=== PATIENT | female | born 2005 | race Caucasian/White ===

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

== ENCOUNTER 2024-05-30 16:36 | Outpatient (CLI) | payer SELFPAY ==
[~2024-05-30] VITALS: Ht 157.5 cm; Wt 56.8 kg
[~2024-05-30 16:36] MED LIST changes: +CHANTIX 1MG1 MG PO; +INDERAL 10MG10 MG PO; +PROTONIX 40MG T40 MG PO
[2024-05-30 17:00] VITALS: BP 103/52; PULSE 81; TEMP 98.2
[2024-05-30 17:30] VITALS: BP 107/58; PULSE 80
[2024-05-30] MEDS ORDERED: LR 1,000 ML IV PRN (17:30)
--- NOTE | 2024-05-30 17:51 | NUR ---
VARIABLES NOTED AT THIS TIME ON HEART RATE DURING PT POSITION CHANGE FROM SEMIFOWLERS TO ON HER LEFT LATERAL SIDE. PT NOT REPORTING ANY PAIN, DENIES FEELING CONTRACTIONS, NO LEAKING OF FLUID, NO VAGINAL BLEEDING. PT VS STABLE
[2024-05-30 18:00] VITALS: BP 105/56; PULSE 69
[2024-05-30 18:30] VITALS: BP 107/62; PULSE 81
[2024-05-30 18:41] LABS: TRICYCLIC ANTIDEPRESS URINE NEGATIVE (NEGATIVE)
[2024-05-30 19:00] VITALS: BP 98/54; PULSE 86
--- NOTE | 2024-05-30 19:10 | NUR ---
PT STATES NOT NOTICING CONTRACTIONS OTHER THAN AN OCCASIONAL TIGHTENING. REVIEWED PT SUMMARY WITH HER. DISCUSSED KICK COUNTS AND EARLY LABOR SIGNS AND WHEN TO COME TO HOSPITAL. INSTRUCTED PT TO FOLLOW UP WITH HER MD SCHEDULED AND TO CALL WITH QUESTIONS OR CONCERNS. VERBALIZED UNDERSTANDING. 1916-PT DISCHARGED HOME AMBULATORY WITH COPY OF SUMMARY AND INSTRUCTIONS.
== END 2024-05-30 19:17 | disposition home or self-care (01) ==
LOC: LDRO 16:36
PROVIDERS: Obstetrics & Gynecology
DX: O36.8130 Decreased fetal movements, third trimester, not applicable or unspecified (principal); Z3A.36 36 weeks gestation of pregnancy

== ENCOUNTER 2024-06-15 20:18 | Outpatient (CLI) | payer MEDICAID ==
[~2024-06-15] VITALS: Ht 157.5 cm; Wt 56.8 kg
--- NOTE | 2024-06-15 20:30 | NUR ---
PT AMBULATORY ONTO UNIT. LABOR CHECK FOR POSSIBLE SROM. 2032- PT PLACED ON MONITORS. VITALS OBTAINED. PT REPORTS FEELING A "TRICKLE" OF CLEAR FLUID THIS MORNING AT 1030, NO REPORT OF CTX, POSITIVE MOVEMENT. NEGATIVE (-) AMNIOTRACE X3. 2039- SVE BY THIS NURSE /-.
[2024-06-15 21:00] VITALS: BP 132/89; PULSE 112; TEMP 98
[2024-06-15 21:30] VITALS: PULSE 91
[2024-06-15 21:44] VITALS: BP 107/67; PULSE 86
[2024-06-15 21:50] VITALS: PULSE 90
[2024-06-15] MEDS ORDERED: LR 1,000 ML IV PRN (22:00)
--- NOTE | 2024-06-15 22:00 | NUR ---
PT AMBULATORY OFF UNIT WITH SIGNIFICANT OTHER. DISCHARGED ON LABOR PRECAUTIONS. DISCHARGE INFORMATION REVIEWED AND PROVIDED TO THE PT, PT VERBALIZED UNDERSTANDING OF INFORMATION.
== END 2024-06-15 22:00 | disposition home or self-care (01) ==
LOC: LDRO 20:18
DX: Z34.93 Encounter for supervision of normal pregnancy, unspecified, third trimester (principal); Z3A.38 38 weeks gestation of pregnancy

== ENCOUNTER 2024-06-17 06:40 | Inpatient (IN) | payer MEDICAID ==
[~2024-06-17] VITALS: Wt 56.8 kg
[2024-06-17] VITALS (35 sets, daily range): BP systolic 91–127; BP diastolic 53–75; PULSE 52–115; TEMP 97.5–100
--- NOTE | 2024-06-17 06:45 | NUR ---
PT. ARRIVES TO UNIT VIA WHEELCHAIR WITH COMPLAINTS OF CONTRACTIONS EVERY 5 MINUTES. PT. IN LOTS OF PAIN RATING A 10/10. PT. DENIES LEAKING OF FLUID AND VAGINAL BLEEDING. PT. CONFIRMS MOVEMENT.
[2024-06-17] MEDS ORDERED: LR 1,000 ML IV SCH (07:15)
[2024-06-17] MEDS ORDERED: LR & Oxytocin 500 ML IV SCH (07:15)
[2024-06-17 07:51] LABS: BASO % 0.1 % (0.0-2.0); EOS % 0.1 % (0.0-4.0); GRAN # 12.4 K/mm3 (1.4-6.5); GRAN % 82.3 % (42.2-75.2); HEMOGLOBIN 11.1 g/dl (12.5-16.0); LYMPH # 1.6 K/mm3 (1.2-3.4); LYMPH % 10.9 % (20.0-51.0); MEAN CELL VOLUME 83 fl (80.0-100.0); MEAN CORPUSCULAR HEMOGLOBIN 27 pg (27-31); MEAN CORPUSCULAR HGB CONC 33 g/dl (33.0-37.0); MEAN PLATELET VOLUME 11.2 fl (7.4-10.4); MONO # 0.9 K/mm3 (0.1-0.6); MONO % 5.9 % (1.7-9.3); PLATELET COUNT 170 K/mm3 (130-400); RED BLOOD COUNT 4.05 M/mm3 (4.10-5.30); REDCELL DISTRIBUTION WIDTH-CV 13.1 % (11.5-14.5)
[2024-06-17 07:52] LABS: HEMATOCRIT 33.5 % (37.0-47.0)
[2024-06-17] MEDS ORDERED: ROPivacaine PF 0.2% 200 ML IV ONE (08:18)
[2024-06-17] MEDS ORDERED: Naloxone 0.4 MG/ML VIAL IV PRN ×2 (09:00→15:30)
[2024-06-17] MEDS ORDERED: ePHEDrine 50 MG/10 ML VIAL IV PRN (09:00)
[2024-06-17] MEDS ORDERED: diphenhydrAMINE 25 MG CAP PO PRN (09:00)
[2024-06-17] MEDS ORDERED: diphenhydrAMINE 50 MG/ML 1 ML VIAL IV PRN (09:00)
--- NOTE | 2024-06-17 10:02 | NUR ---
0815 - This RN assumes care of pt at this time. 08 - RADHA Recio to bedside, pt repositioned to sitting at bedside for epidural placement. Test dose given at 0838, pt then repositioned low white. 854 - Dr. Gil to bedside, discusses plan of care with pt. SVE per provider /-1. AROM at this time, mec fluid noted. 901 - Valles placement attempted at this time but stopped as heart tones noted in the 60s. Pt repositioned LL then RL then to hands and knees. Fluids opened, ephedrine given, FHT recovery to baseline 0907. 09 - Pt repositioned from hands and knees to RL. 937 - Pt agreeable with attempting catheter placement again, repositioned to low fowlers. Valles placed at 0940, pt then repositioned RL with pillow between knees, as requested. Pt comfortable at this time with epidural.
[2024-06-17 10:26] LABS: TRICYCLIC ANTIDEPRESS URINE NEGATIVE (NEGATIVE)
[2024-06-17] MEDS ORDERED: PRENATAL TABLET PO (11:15)
--- NOTE | 2024-06-17 12:10 | NUR ---
Pt's mother out to desk, reports pt feeling pressure now with contractions. Pt reports last contraction had "a lot" of pressure. SVE /0. Dr. Gil called and updated.
--- NOTE | 2024-06-17 13:10 | NUR ---
1300 - Dr. Gil to bedside. SVE per provider AL/100/0. Following SVE, variable decel into 60s. Dr. Gil still on unit and notified.
--- NOTE | 2024-06-17 13:20 | NUR ---
Pt reports increased and continuous pressure. SVE 10/100/+1. Dr. Gil on unit and notified, verbal orders to start pushing with pt.
[2024-06-17] MEDS ORDERED: Mag/Al Hydrox/Simeth Susp 30 ML CUP PO PRN (15:30)
[2024-06-17] MEDS ORDERED: Measles/Mumps/Rubella Virus Vaccine Live w Diluent 0.5 ML VIAL SQ SCH (15:30)
[2024-06-17] MEDS ORDERED: Loratadine 10 MG TAB PO PRN (15:30)
[2024-06-17] MEDS ORDERED: Phenylephrine/Mineral Oil/Petrolatum 57 GM TUBE RC PRN (15:30)
[2024-06-17] MEDS ORDERED: Acetaminophen 500 MG TAB PO SCH (15:30)
[2024-06-17] MEDS ORDERED: Witch Hazel 50% Pads Bulk TUB TP PRN (15:30)
[2024-06-17] MEDS ORDERED: oxyCODONE 5 MG TAB PO PRN (15:30)
[2024-06-17] MEDS ORDERED: Magnes Hydrox (MOM) 80 MG/ML 30 ML CUP PO PRN (15:30)
[2024-06-17] MEDS ORDERED: Ibuprofen 600 MG TAB PO SCH (15:30)
--- NOTE | 2024-06-17 16:56 | NUR ---
1350 - Deep, wide variables noted with pushing. FHTs into 60s, quick recovery back to baseline. 1400 - Mother feels warm, axillary temp 100.0, radial pulse 70. 1430 - Variables and intermittent lates continue with pushing. Dr. Gil aware, good progress being made, plan to continue. FHR tachy into 180s between pushes. 1500 - Dr. Gil back to bedside, pushes with pt. Per provider, ready for delivery. Nursery Rn called to bedside, bed broken down and pt repositioned for delivery. 1511 - Head delivered. Tight nuchal cord, clamped by Dr. Gil and cut by father on the perineum. 1512 - Viable male infant delivered via followed by thick mec. Infant taken to warmer by Dr. Gil, care of infant transferred to Rachelle Ware RN of nursery. Placenta delivered spontaneously at 1518, pitocin started per protocol. Repair of superficial perineal laceration performed by Dr. Gil. Pericare provided, clean bed pad and ice pack placed. Pt repositioned for comfort.
[2024-06-17] MEDS ORDERED: Sennosides/Docusate 8.6-50 MG TAB PO SCH (17:00)
[2024-06-17] MEDS ORDERED: traZODone 50 MG TAB PO PRN (21:00)
[2024-06-18 03:00] VITALS: BP 91/52; PULSE 64; TEMP 97.5
[2024-06-18 08:00] VITALS: BP 97/43; PULSE 79; TEMP 97.9
[2024-06-18] MEDS ORDERED: IBU600 MG PO (08:37)
--- NOTE | 2024-06-18 09:50 | NUR ---
Initial visit; Parents thanked for looking in on them and offering congratulations and God's blessings for the of their son. Mortgage Loan Assistant thanked family for choosing [facility] and hoped they had a good experience here.
[2024-06-18] MEDS ORDERED: Rho(D) Imm Globulin 1,500 UNITS (300 MCG)/2 ML SYRINGE IV\\IM SCH (10:30)
--- NOTE | 2024-06-18 14:20 | NUR ---
landing worker received consult for mother with h/o substance use and negative UDS on admit. JESIKA spoke with ARTEMIO Smith who reports no concerns and family is being appropriate with . JESIKA and SW Student met with pt and Paul Santillan to discuss. Pt reports to live with her boyfriend in [place]. She confirmed her number on file and insurance as [employer]. She reports to to be in school at [employer]. She has her own car. Mother reports she needs to reach out to [facility] for childcare assistance and notes her cousin runs a daycare and she will enroll , [place] there. She reports her family and partner's are all good supports. This is her first child. She is on WIC and notes needing to inform them of being born. Pt states she and infant will see Dr. Trevino for follow-up needs. She intends to breastfeed, but currently is doing combo as her milk has not come in. She has a breast pump at home through insurance. She has a carseat, crib, bassinet, pack n play, and enough diapers/wipes. She has no concerns for MH/RENETTA. She reports not having an PPD/A at this time and feels "good." She intends to continue to abstain from substances. JESIKA provided [facility] Guide, [facility] information, [facility] [address], and maternal [facility] She reports interest in the "Becoming a Mom" class they offer. She consents to JESIKA providing referral information. No other needs. JESIKA spoke with [facility] at [facility] who will reach out for pt regarding Maternal Child Program they offer. JESIKA spoke with ARTEMIO Smith and provided update.
--- NOTE | 2024-06-23 08:12 | NUR ---
Cord Blood results for baby returned negative.
== END 2024-06-18 17:30 | disposition home or self-care (01) | DRG 807 ==
LOC: LDRO 06:40 → LDR 06:50 → LDRO 07:05 → OB 07:06 → LDR 07:06 → OB 18:03
PROVIDERS: ADMIT Obstetrics & Gynecology
PROC: 10E0XZZ Delivery of Products of Conception, External Approach (ICD-10-PCS; principal; 2024-06-17)
PROC: 0HQ9XZZ Repair Perineum Skin, External Approach (ICD-10-PCS; 2024-06-17)
DX: O99.344 Other mental disorders complicating childbirth (principal); Z37.0 Single live birth; F41.9 Anxiety disorder, unspecified; O77.0 Labor and delivery complicated by meconium in amniotic fluid; O69.81X0 Labor and delivery complicated by cord around neck, without compression, not applicable or unspecified; Z3A.39 39 weeks gestation of pregnancy; O70.9 Perineal laceration during delivery, unspecified
CPT/HCPCS: J2791; J2795; J7120